=== PATIENT | female | born 1980 | race Caucasian/White ===

== ENCOUNTER 2017-02-18 08:35 | Emergency (ER) | payer BC ==
[~2017-02-18] VITALS: Wt 80.0 kg
--- NOTE | 2017-02-18 09:21 | RADRPT ---
PROCEDURE: Chest x-ray CLINICAL INDICATION: Cough TECHNIQUE: Chest single view COMPARISON: 12/25/2016 FINDINGS: The heart is normal in size. The pulmonary vessels are normal in caliber. The lungs are clear. Th e costophrenic angles are sharp. The visualized bony thorax is unremarkable. IMPRESSION: No acute cardiopulmonary disease. RPTAT: HH .Dewayne Díaz MD, Date Time Electronically viewed and signed by .Dewayne Díaz MD, on 02/18/2017 09:21 .W/
[2017-02-18] MEDS ORDERED: PROM5SYR2 PO (09:26)
[2017-02-18] MEDS ORDERED: AZIT250T94 PO (09:26)
--- NOTE | 2017-02-18 09:36 | ERD ---
ER Documentation Chief Complaint Chief Complaint cough, ordaz, bodyaches, dizziness HPI Patient presents with cough and nasal congestion and body aches for last 3 days. She had a fever this morning but no fever triage. She was treated for influenza 2 weeks ago but recovered for a week. ROS All systems reviewed and are negative except as per history of present illness. Medications Home Meds Active Scripts Promethazine HCl/Codeine (Prometh-Codein 6.25-10 mg/5 ml) 5 Ml Syrup, 5 ML PO TID for 5 Days 4 oz Prov:AMAURI SALCEDO MD 02/18/17 Azithromycin* (Zithromax*) 250 Mg Tablet, 250 MG PO .ZPACK DIRECTED, #6 TAB TAKE 500 MG (2 TABS) THE FIRST DAY THEN 250 MG (1 TAB) DAYS 2-5 Prov:AMAURI SALCEDO MD 02/18/17 Physical Exam Vitals Vital Signs Date Time Temp Pulse Resp B/P Pulse Ox O2 Delivery O2 Flow Rate FiO2 02/18/17 08:42 98.2 112 20 143/90 97 Physical Exam Const: [] Alert, [id number]. Head: Atraumatic Eyes: Normal Conjunctiva ENT: Normal External Ears, Nose and Mouth. Mild maxillary tenderness. 2+ nasal congestion. Postnasal drip. Neck: Full range of motion..~ No meningismus. Resp: Clear to auscultation bilaterally Cardio: Regular rate and rhythm, no murmurs Abd: Soft, non tender, non distended. Normal bowel sounds Skin: No petechiae or rashes Back: No midline or flank tenderness Ext: No cyanosis, or edema Neur: Awake and alert Psych: Normal Mood and Affect Procedures/MDM Chest X-ray 1V Interpreted by me: Soft Tissue: No acute abnormalities Bones: No acute abnormalities Mediastinum/Cardiac Silhouette/Lungs: [No acute abnormalities]. Impression- normal 1 view chest x-ray Patient presents with URI symptoms over the last 3 days. Given the duration of URI symptoms and possible sinusitis she will be treated with Zithromax, promethazine and codeine although may be a new viral illness. There is no evidence of hypoxemia or respiratory distress or pneumonia. No evidence of abdominal pain or additional emergent causes of presenting complaints. The patient was stable with no new complaints during the ER course. Clinically, there is no current evidence to suggest meningitis, sepsis, acute abdomen, pneumonia, acute coronary syndrome, pulmonary embolism, or any other emergent condition appearing to require further evaluation or hospitalization. The patient should certainly return for any new or worsening symptoms per the aftercare instructions. They should otherwise follow-up with her primary care doctor for reevaluation this week. Departure Diagnosis: Primary Impression: Cough Additional Impression: Sinusitis Sinusitis location: maxillary Chronicity: acute Recurrence: not specified as recurrent Qualified Code: J01.00 - Acute maxillary sinusitis, recurrence not specified Condition: Stable Patient Instructions: Acute Bronchitis, Sinusitis, Abx Tx Additional Instructions: Recheck for new or worsening symptoms or primary care doctor. AMAURI SALCEDO MD Feb 18, 2017 09:36
== END 2017-02-18 09:51 | disposition home or self-care (01) ==
LOC: FTE 08:35
DX: R05 Cough (principal); J01.00 Acute maxillary sinusitis, unspecified
CPT/HCPCS: 71010